=== PATIENT | female | born 1945 | race Caucasian/White ===

== ENCOUNTER 2018-06-23 15:02 | Emergency (ER) | payer MEDICARE, OTHER ==
[~2018-06-23] VITALS: Wt 97.3 kg
[~2018-06-23 15:02] MED LIST: ALPR0.5T6 PO; AMLO2.5T78 PO; ASPI-1044 PO; CLON-379 PO; DULO30CA45 PO; ERGO400T4 PO; GABA300C16 PO; HYDR-3672 PO; INSU100I28 SQ; LIRA0.6P SQ; PANT40TA4 PO; PRAV20TA63 PO; SAXA5TAB2 PO
[2018-06-23 15:19] VITALS: BP 206/93; PULSE 72; RESP 17
[2018-06-23] MEDS ORDERED: VISM150C PO (17:45)
[2018-06-23] MEDS ORDERED: PANT40TA4 PO (17:45)
[2018-06-23] MEDS ORDERED: AMLO5TAB4 PO (17:46)
[2018-06-23] MEDS ORDERED: HYDR-3672 PO (17:46)
[2018-06-23] MEDS ORDERED: ZOLP10TA5 PO (17:46)
[2018-06-23] MEDS ORDERED: CLOP75TA19 PO (17:47)
[2018-06-23] MEDS ORDERED: ROSU20TA PO (17:47)
[2018-06-23] MEDS ORDERED: INSU3INS2 SQ (17:48)
[2018-06-23] MEDS ORDERED: PREG50CA PO (17:48)
[2018-06-23] MEDS ORDERED: ASPI-817 PO (17:49)
--- NOTE | 2018-06-23 18:40 | ERD ---
ER Documentation Chief Complaint Chief Complaint PT BIB AMBULANCE WITH C/O RIGHT UPPER ARM PAIN/BRUISING X1 DAY, NO TRAUMA HPI This is 72-year-old female who was cutting some bread yesterday when she felt a sudden pain in her right bicep and she subsequently developed a bruise there. There is no swelling or erythema no shortness of breath or chest pain. The patient takes Plavix and aspirin on a daily basis. She has no pain with flexion of the bicep. ROS All systems reviewed and are negative except as per history of present illness. Medications Home Meds Reported Medications Aspirin* (Aspirin* EC) 81 Mg Tablet.dr, 81 MG PO DAILY, TAB 06/23/18 Insulin Glargine/Lixisenatide (Soliqua 100 Unit-33 Mcg/ml Pen) 3 Ml Insuln.pen, 3 ML SQ DAILY 06/23/18 Pregabalin* (Lyrica*) 50 Mg Capsule, 50 MG PO NEEDED, CAP 06/23/18 Rosuvastatin Calcium* (Crestor*) 20 Mg Tablet, 20 MG PO QHS, #30 TAB 06/23/18 Clopidogrel Bisulfate* (Clopidogrel Bisulfate*) 75 Mg Tablet, 75 MG PO DAILY, #30 TAB 06/23/18 Zolpidem Tartrate* (Zolpidem Tartrate*) 10 Mg Tablet, 10 MG PO QHS PRN for INSOMNIA, #30 TAB 06/23/18 Amlodipine Besylate* (Norvasc*) 5 Mg Tablet, 5 MG PO DAILY, TAB 06/23/18 Hydralazine Hcl* (Apresoline*) 50 Mg Tab, 50 MG PO BID, #60 TAB 06/23/18 Vismodegib (ERIVEDGE) 150 Mg Capsule, 150 MG PO DAILY, CAP 06/23/18 Pantoprazole* (Pantoprazole*) 40 Mg Tablet.dr, 40 MG PO AC BREAKFAST, TAB 06/23/18 Discontinued Reported Medications Insulin Detemir* (Levemir*) 100 U/Ml Insuln.pen, 100 U SQ 20 UNITS IN AM 40 UNITS PM 02/11/13 Liraglutide (Victoza 2-Gunnar) 0.6 Mg/0.1 Ml Pen.injctr, 1.8 MG SQ DAILY 02/11/13 Amlodipine Besylate* (Amlodipine Besylate*) 2.5 Mg Tablet, 5 MG PO DAILY 02/11/13 Gabapentin* (Gabapentin*) 300 Mg Capsule, 300 MG PO BID 02/11/13 Saxagliptin Hcl* (Onglyza*) 5 Mg Tablet, 5 MG PO DAILY 02/11/13 Duloxetine Hcl* (Cymbalta*) 30 Mg Capsule.dr, 30 MG PO BID 02/11/13 Aspirin Delayed Release (Aspirin Delayed Release) 81 Mg Tablet.dr, 81 MG PO DAILY 02/11/13 Pantoprazole* (Pantoprazole*) 40 Mg Tablet.dr, 40 MG PO DAILY 02/11/13 Hydralazine Hcl* (Hydralazine Hcl*) 50 Mg Tablet, 50 MG PO TID 02/11/13 Clonidine Hcl* (Clonidine Hcl*) 0.1 Mg Tab, 0.1 MG PO TID 02/11/13 Ergocalciferol (Vitamin D2) 400 Unit Tablet, 400 UNIT PO DAILY 02/11/13 Pravastatin Sodium* (Pravastatin Sodium*) 20 Mg Tablet, 20 MG PO DAILY 02/11/13 Alprazolam* (Alprazolam*) 0.5 Mg Tablet, 0.5 MG PO DAILY 02/11/13 Allergies Allergies: Coded Allergies: No Known Allergy (Verified , 06/23/18) PMhx/Soc History of Surgery: Yes (ANGIOGRAM) Anesthesia Reaction: No Hx Neurological Disorder: No Hx Respiratory Disorders: No Hx Cardiac Disorders: Yes (HTN, HIGH CHOLESTEROL) Hx Psychiatric Problems: Yes (ANXIETY) Hx Miscellaneous Medical Probl: No Hx Alcohol Use: No Hx Substance Use: No Hx Tobacco Use: No Smoking Status: Never smoker FmHx Family History: No coronary disease Physical Exam Vitals Vital Signs Date Temp Pulse Resp B/P (MAP) Pulse Ox O2 O2 Flow FiO2 Time Delivery Rate 06/23/18 97.4 72 17 206/93 98 15:19 (130) Physical Exam Const: Well-developed, well-nourished Head: Atraumatic, normocephalic Eyes: Normal Conjunctiva, PERRLA, EOMI, normal sclera, no nystagmus ENT: Normal External Ears, Nose and Mouth, moist mucus membranes. Neck: Full range of motion. No meningismus, no lymphadenopathy. Resp: Clear to auscultation bilaterally, no wheezing, rhonchi, rales Cardio: Regular rate and rhythm, no murmurs, S1 S2 present Abd: Soft, non tender x 4, non distended. Normal bowel sounds, no guarding or rebound, no pulsitile abdominal masses or bruits Skin: The right bicep has a bruise on and about 3-1/2 inches x 2-1/2 inches no signs of cellulitis there is mild tenderness Back: No midline or flank tenderness Ext: No cyanosis, or edema, FROM x 4, normal inspection, neurovascularly intact x 4 Neur: Awake and alert, STR 5/5 x 4, sensation intact x 4, no focal findings, cerebellum intact Psych: Normal Mood and Affect Procedures/MDM Ordering MD: ODALIS THRASHER DO Location: E/R Room/Bed: PROCEDURE: US Duplex Right Upper Extremity Veins CLINICAL INDICATION: Biceps ecchymosis. TECHNIQUE: Real-time duplex ultrasound scan of the right upper extremity veins integrating B-mode two-dimensional vascular structure, Doppler spectral analysis, color flow Doppler imaging and compression. COMPARISON: None FINDINGS: DEEP VEINS: Unremarkable. No DVT in the internal jugular, subclavian, axillary, or brachial veins. The veins demonstrate normal color flow, are normally compressible, with normal phasic flow and/or augmentation response. Visualized portions of the radial and ulnar vein are also unremarkable. SUPERFICIAL VEINS: Unremarkable. No thrombus in the visualized basilic and cephalic veins. SOFT TISSUES: No acute findings. IMPRESSION: No deep vein thrombosis, right upper extremity. RPTAT: [facility] Amber Martin Physician Filling Hand Date Time Electronically viewed and signed by Amber Martin Physician Filling Hand on 06/23/2018 18:20 RmC/ CC: ODALIS THRASHER DO [phone] No sign of DVT with patient likely just broke blood vessel being on aspirin and Plavix. Will discharge home with warning precautions Departure Diagnosis: Primary Impression: Ecchymoma Additional Impression: Ecchymosis Condition: Stable Patient Instructions: Contusions (Bruises) ODALIS THRASHER DO Jun 23, 2018 18:40
== END 2018-06-23 18:45 | disposition home or self-care (01) ==
LOC: E/R 15:02
DX: R22.31 Localized swelling, mass and lump, right upper limb (principal); I10 Essential (primary) hypertension; Z79.01 Long term (current) use of anticoagulants; Z79.4 Long term (current) use of insulin; Z79.82 Long term (current) use of aspirin
CPT/HCPCS: 93971